=== PATIENT | female | born 1950 | race Caucasian/White ===

== ENCOUNTER → 2017-11-24 07:45 | Outpatient (CLI) | payer MEDICARE, BC | END | disposition home or self-care (01) | LOC: D.NM 07:45 | DX: R10.11 Right upper quadrant pain (principal) ==

== ENCOUNTER → 2017-12-09 07:29 | Outpatient (CLI) | payer MEDICARE, BC | END | disposition home or self-care (01) | LOC: D.MRI 07:29 | DX: K86.2 Cyst of pancreas (principal) ==